=== PATIENT | female | born 1960 | race Caucasian/White ===

== ENCOUNTER 2018-06-22 17:43 | Emergency (ER) | payer BC, OTHER ==
[~2018-06-22] VITALS: Ht 162.6 cm; Wt 68.0 kg
[~2018-06-22 17:43] MED LIST: LEVSOD75 PO; NITR100CA PO; OLME20 PO; OXYACE5T PO; PROM25 PO
[2018-06-22 18:52] LABS: BASOPHILS ABSOLUTE AUTO 0.04 K/mm3 (0.00-0.23); BASOPHILS PERCENT AUTO 0 % (0-2); EOSINOPHILS PERCENT AUTO 2 % (0-6); Hematocrit 44.9 % (33.0-51.0); IMMATURE GRAN ABSOLUTE AUTO 0.04 K/mm3 (0.00-0.10); IMMATURE GRAN PERCENT AUTO 0 % (0-1); LYMPHOCYTES ABSOLUTE AUTO 2.38 K/mm3 (0.84-5.20); LYMPHOCYTES PERCENT AUTO 21 % (21-46); MONOCYTES ABSOLUTE AUTO 0.48 K/mm3 (0.16-1.47); MONOCYTES PERCENT AUTO 4 % (4-13); Mean Corpuscular HGB 30.5 pg (26.0-34.0); Mean Corpuscular HGB Conc 33.4 g/dL (31.5-36.5); Mean Corpuscular Volume 91 fL (80-100); NEUTROPHILS ABSOLUTE AUTO 8.11 K/mm3 (1.96-9.15); NEUTROPHILS PERCENT AUTO 72 % (41-73); Platelet Count 234 K/mm3 (150-400); RDW Coefficient Variation 13.9 % (11.7-14.2); RDW Standard Deviation 47.3 fL (35.1-46.3); Red Blood Cell Count 4.91 M/mm3 (3.80-5.20); White Blood Cell Count 11.25 K/mm3 (4.00-11.30)
[2018-06-22 19:11] LABS: Alanine Aminotransfer (ALT/SGP 59 U/L (12-78); Alk Phos 66 U/L (50-136); Anion Gap 8 mmol/L (6-16); Aspartate Aminotrans (AST/SGOT 69 U/L (12-37); Bilirubin, Total 0.3 mg/dL (0.1-1.0); Blood Urea Nitrogen 16 mg/dL (8-24); Bun/Creatinine Ratio 16.4 (12.0-20.0); CO2, Blood 28 mmol/L (21-32); Calcium, Blood 9.5 mg/dL (8.5-10.1); Chloride, Blood 104 mmol/L (98-108); Creatinine, Blood 0.98 mg/dL (0.40-1.00); Globulin, Blood 4.1 g/dL (2.2-4.0); Glomerular Filtration Rate >60 (60-); Glucose, Blood 135 mg/dL (70-99); Potassium, Blood 2.8 mmol/L (3.5-5.5); Sodium, Blood 140 mmol/L (136-145); Total Protein, Blood 8.1 g/dL (6.4-8.2); Troponin I <0.015 ng/mL (0.000-0.040)
[2018-06-22] MEDS ORDERED: VENL75ER PO (20:30)
[2018-06-22] MEDS ORDERED: AMLO5 PO (20:30)
[2018-06-22] MEDS ORDERED: ADAL40PEN (20:30)
[2018-06-22] MEDS ORDERED: LEVSOD125 PO (20:30)
[2018-06-22] MEDS ORDERED: CONEST1.25 PO (20:30)
[2018-06-22] MEDS ORDERED: Pantoprazole So40 MG PO (20:31)
[2018-06-22] MEDS ORDERED: INSULANPEN (20:31)
[2018-06-22] MEDS ORDERED: METF500C PO (20:31)
[2018-06-22] MEDS ORDERED: FENO145 PO (20:31)
[2018-06-22] MEDS ORDERED: HYDCHL25 PO (20:31)
[2018-06-22] MEDS ORDERED: K-Dur20 MEQ PO (20:48)
== END 2018-06-22 21:29 | disposition home or self-care (01) ==
LOC: ER 17:43
PROVIDERS: Physician Assistant
DX: E87.6 Hypokalemia (principal); R25.3 Fasciculation; E11.9 Type 2 diabetes mellitus without complications; E78.5 Hyperlipidemia, unspecified; I10 Essential (primary) hypertension; E03.9 Hypothyroidism, unspecified
CPT/HCPCS: 36415; 71046; 80053; 82947; 84484; 85025; 93005; 93010; 99284-25

== ENCOUNTER → 2021-10-11 | Outpatient (CLI) | payer BC, OTHER ==
[~2021-10-11] MED LIST changes: +ADAL40PEN; +AMLO5 PO; +CONEST1.25 PO; +FENO145 PO; +HYDCHL25 PO; +INSULANPEN; +K-Dur20 MEQ PO; +LEVSOD125 PO; +METF500C PO; +Pantoprazole So40 MG PO; +VENL75ER PO
[2021-10-13 20:49] LABS: Adenovirus F 40/41 Not Detected (NOT DETECT); Astrovirus Not Detected (NOT DETECT); Campylobacter Sp Not Detected (NOT DETECT); Cryptosporidium Not Detected (NOT DETECT); Cyclospora Cayetanensis Not Detected (NOT DETECT); E. Coli O157 Not Detected (NOT DETECT); Entamoeba Histolytica Not Detected (NOT DETECT); Enteroaggregative E. coli-EAEC Not Detected (NOT DETECT); Enteropathogenic E. coli-EPEC Not Detected (NOT DETECT); Enterotoxigenic E. coli-ETEC Not Detected (NOT DETECT); Giardia Lamblia Not Detected (NOT DETECT); Norovirus GI/GII Not Detected (NOT DETECT); Plesiomonas Shigelloides Not Detected (NOT DETECT); Rotavirus A Not Detected (NOT DETECT); Salmonella Sp Not Detected (NOT DETECT); Shiga Toxin-prod E. coli-STEC Not Detected (NOT DETECT); Shigella/Enteroin E. coli-EIEC Not Detected (NOT DETECT); Vibrio Cholerae Not Detected (NOT DETECT); Vibrio Sp Not Detected (NOT DETECT); Yersinia Enterocolitica Not Detected (NOT DETECT)
[2021-10-13 20:50] LABS: Sapovirus Not Detected (NOT DETECT)
== END | disposition home or self-care (01) ==
LOC: LAB SHORT 17:45 → LAB 17:45
PROVIDERS: Nurse Practitioner Family
DX: A06.1 Chronic intestinal amebiasis (principal)
CPT/HCPCS: 87507

== ENCOUNTER 2022-08-06 05:39 | Inpatient (IN) | payer BC, OTHER ==
[~2022-08-06] VITALS: Ht 162.6 cm; Wt 55.7 kg
[~2022-08-06 05:39] MED LIST changes: +ALPR.5 PO; +AMLODIPINE BESYL5 MG PO; +AMOCLA875 PO; +ATEN50 PO; +BACLOFEN5 M1 PO; +CYMBALTA30 M2 PO; +DULO60 PO; +Flonase 0.05% N16 GM; +LEUC5 PO; +LEVOTHYROXINE PO; +LIDO700A20 TOP; +LOSA25 PO; +METFORMIN HCL500 M3 PO; +Norco 5-325 Ta1 EACH PO; +PANT40 PO; -Pantoprazole So40 MG PO; +Potassium Chlo20 ME1 PO; +Robaxin750 MG PO; +SITA100T2 PO; +SPIR25 PO
[2022-08-06 06:13] LABS: BASOPHILS ABSOLUTE AUTO 0.08 K/mm3 (0.00-0.23); BASOPHILS PERCENT AUTO 0 % (0-2); EOSINOPHILS ABSOLUTE AUTO 0.13 K/mm3 (0.00-0.68); EOSINOPHILS PERCENT AUTO 1 % (0-6); Hematocrit 38.6 % (33.0-51.0); Hemoglobin 14.1 g/dL (11.5-16.0); IMMATURE GRAN ABSOLUTE AUTO 0.21 K/mm3 (0.00-0.10); IMMATURE GRAN PERCENT AUTO 1 % (0-1); LYMPHOCYTES ABSOLUTE AUTO 2.21 K/mm3 (0.84-5.20); LYMPHOCYTES PERCENT AUTO 12 % (21-46); MONOCYTES PERCENT AUTO 6 % (4-13); Mean Corpuscular HGB Conc 36.5 g/dL (31.5-36.5); Mean Corpuscular Volume 82 fL (80-100); Mean Platelet Volume 12.7 fL (9.1-12.4); NEUTROPHILS ABSOLUTE AUTO 15.12 K/mm3 (1.96-9.15); NEUTROPHILS PERCENT AUTO 80 % (41-73); Platelet Count 259 K/mm3 (150-400); RDW Standard Deviation 36.3 fL (35.1-46.3); White Blood Cell Count 18.85 K/mm3 (4.00-11.30)
[2022-08-06 07:01] LABS: Albumin, Blood 2.9 g/dL (3.4-5.0); Albumin/Globulin Ratio 0.6 (0.8-1.8); Bilirubin, Total 0.5 mg/dL (0.1-1.0); Calcium, Blood 9.2 mg/dL (8.5-10.1); Creatinine, Blood 1.67 mg/dL (0.40-1.00); Globulin, Blood 4.5 g/dL (2.2-4.0); Potassium, Blood 4.5 mmol/L (3.5-5.5); Total Protein, Blood 7.4 g/dL (6.4-8.2)
[2022-08-06] MEDS ORDERED: ALPR.5 PO (07:12)
[2022-08-06 07:21] LABS: Source, Urine Straight Cath
[2022-08-06 07:32] LABS: Appearance, Urine Hazy (Clear); Bilirubin, Urine Neg (Neg); Blood, Urine 2+ (Neg); Color, Urine Yellow (P-Yellow); Glucose Qualitative, Urine 4+ (Neg); Ketones, Urine Neg (Neg); Leukocyte Esterase, Urine 3+ (Neg); Nitrite, Urine Neg (Neg); Protein, Urine 1+ (Neg); Urobilinogen, Urine NORM (Normal)
[2022-08-06 07:44] LABS: Bacteria Many /hpf; Squamous Epithelial Cells Many /hpf (Few)
[2022-08-06] MEDS ORDERED: Triamcinolone A15 G4 TOP (11:43)
[2022-08-06] MEDS ORDERED: GABA300 PO (11:48)
--- NOTE | 2022-08-06 13:46 | NUR ---
RN NOTE MS ELLIS WAS ADMITTED FROM THE ER AT 11.28AM. PT ORIENTATED TO SELF, PLACE, DATE AND SOME OF SITUATION. SHE SOMETIMES STATES ANSWERS THAT DON'T SEEM APPRIOPRIATE FOR THE QUESTION, SEEMS FORGETFUL. BLOOD GLUCOSE 394 ON ARRIVAL. PT ON NON DIABETIC CLEAR LIQUID DIET. DR MILLER INFORMED. GLARGINE INSULIN GIVEN ORDERED. S/S TO START AT 1630HRS. C/O 10/10 PAIN THAT SHE SAID SHE HAS HAD FOR 3 WEEKS DUE TO PINCHED NERVE. HER SAID SHE HAS BEEN IN SEVERE NERVE PAIN, BUT THAT SHE DOESN'T SEEM TO BE IN MUCH PAIN NOW. SHE LOOKS SETTLED AND IS RESTING WITH HER EYES CLOSED, HAS NOT REQUESTED PAIN MEDICATIOINS. SHE DESCRIBED SOME NAUSEA EARLIER, BUT ALSO REPEATIDLY REQUESTS A MEAL TRAY OF SOLID FOOD. REMINDED OF DIET RESTRICTIONS. SHE SAID SHE HAS LOST AROUND 40LBS IN THE PAST 4 MONTHS. SHE SAID SHE USES GUMMYS AT HOME FOR ANXIETY. BED LOW, BED ALARM ON FOR PT SAFETY, CALL LIGHT IN REACH.
[2022-08-06 16:32] LABS: Bun/Creatinine Ratio 25.2 (12.0-20.0); Calcium, Blood 9.4 mg/dL (8.5-10.1); Creatinine, Blood 1.35 mg/dL (0.40-1.00); Magnesium, Blood 2.4 mg/dL (1.6-2.4); Phosphorus, Blood 2.9 mg/dL (2.5-4.9); Potassium, Blood 4.2 mmol/L (3.5-5.5)
--- NOTE | 2022-08-06 17:05 | NUR ---
SHIFT SUMMARY MS ELLIS IS ABLE TO ANSWER ORIENTATION QUESTIONS APPROPRIATELY, BUT IS CONFUSED IN SOME OF THE THINGS THAT SHE SAYS. SHE APPEARS TO BE HAVING HALLUCINATIONS, SAID SHE CAN SEE COWS OUTSIDE THE WINDOWS AND A DOG AND HEARS HER BROTHER'S MOTORBIKE AND VOICE. SHE SAID HER NERVE PAIN IN HER BUTTOCK IS "A LITTLE BIT IRRITATING" AND THAT SHE DOES NOT NEED PAIN MEDICATIONS AT THIS TIME. IVF INFUSING. EXTRA DOSE OF LONG ACTING INSULIN GIVEN. LAST BLOOD GLUCOSE 357. STEADY GAIT TO BATHROOM, ASSISTED AND GAIT BELT ON. SHE HAS USED THE CALL LIGHT AND WAITED FOR HELP BEFORE GETTING UP OUT OF BED. BED ALARM ON.
--- NOTE | 2022-08-06 17:36 | NUR ---
RN NOTE DR COTA UPDATED ON PT STATUS. INCREASING CONFUSION AND HALLUCINATIONS. SEROQUIL 25-50MG QHS PRN ORDERED AND ENTERED INTO [employer]. BLOOD GLUCOSE 353,10 UNITS S/S INSULIN GIVEN.
[2022-08-07 05:00] LABS: Source, Urine Foley catheter
[2022-08-07 05:13] LABS: Appearance, Urine Clear (Clear); Bilirubin, Urine Neg (Neg); Blood, Urine Neg (Neg); Glucose Qualitative, Urine 1+ (Neg); Ketones, Urine Neg (Neg); Leukocyte Esterase, Urine Neg (Neg); Nitrite, Urine Neg (Neg); Protein, Urine Neg (Neg); Specific Gravity, Urine 1.015 (1.003-1.022); Urobilinogen, Urine NORM (Normal)
[2022-08-07 05:27] LABS: BASOPHILS ABSOLUTE AUTO 0.09 K/mm3 (0.00-0.23); BASOPHILS PERCENT AUTO 0 % (0-2); EOSINOPHILS ABSOLUTE AUTO 0.23 K/mm3 (0.00-0.68); EOSINOPHILS PERCENT AUTO 1 % (0-6); Hematocrit 41.3 % (33.0-51.0); Hemoglobin 13.9 g/dL (11.5-16.0); IMMATURE GRAN ABSOLUTE AUTO 0.22 K/mm3 (0.00-0.10); IMMATURE GRAN PERCENT AUTO 1 % (0-1); LYMPHOCYTES ABSOLUTE AUTO 4.02 K/mm3 (0.84-5.20); LYMPHOCYTES PERCENT AUTO 20 % (21-46); MONOCYTES ABSOLUTE AUTO 1.51 K/mm3 (0.16-1.47); MONOCYTES PERCENT AUTO 7 % (4-13); Mean Corpuscular HGB 29.4 pg (26.0-34.0); Mean Corpuscular HGB Conc 33.7 g/dL (31.5-36.5); Mean Platelet Volume 12.3 fL (9.1-12.4); NEUTROPHILS ABSOLUTE AUTO 14.21 K/mm3 (1.96-9.15); NEUTROPHILS PERCENT AUTO 70 % (41-73); Platelet Count 317 K/mm3 (150-400); RDW Coefficient Variation 12.4 % (11.7-14.2); RDW Standard Deviation 39.8 fL (35.1-46.3); Red Blood Cell Count 4.73 M/mm3 (3.80-5.20); White Blood Cell Count 20.28 K/mm3 (4.00-11.30)
[2022-08-07 05:28] LABS: Color, Urine Pale Yellow (P-Yellow)
[2022-08-07 05:36] LABS: U Amphetamine Screen Not Detected; U Barbituate Screen Not Detected; U Benzodiazapine Screen Not Detected; U Buprenorphine Screen Not Detected; U Cannabinoids Screen DETECTED; U Cocaine Screen Not Detected; U Methadone Screen Not Detected; U Methamphetamine Screen Not Detected; U Opiates Screen Not Detected; U Oxycodone Screen Not Detected; U Phencyclidine Screen Not Detected; U Propoxyphene Screen Not Detected
[2022-08-07 05:53] LABS: Mean Corpuscular Volume 87 fL (80-100)
[2022-08-07 06:04] LABS: Albumin, Blood 3.4 g/dL (3.4-5.0); Albumin/Globulin Ratio 0.7 (0.8-1.8); Bilirubin, Total 0.7 mg/dL (0.1-1.0); Bun/Creatinine Ratio 20.8 (12.0-20.0); Calcium, Blood 10.5 mg/dL (8.5-10.1); Creatinine, Blood 1.44 mg/dL (0.40-1.00); Globulin, Blood 4.9 g/dL (2.2-4.0); Potassium, Blood 5.4 mmol/L (3.5-5.5); Total Protein, Blood 8.3 g/dL (6.4-8.2)
--- NOTE | 2022-08-07 06:14 | NUR ---
SHIFT SUMMERY, PT VERY CONFUSED AND AJITATED TONIGHT. PT HAD BECOME INCREAINGLY MORE CONFUSED AND AJITATED THE NIGHT PROGRESSED. PT WAS HEARING THINGS AND HAVING HALUCINATIONS, PULLING OUT IVS, TRYING TO GET OUT OF BED TRYING TO HIT AND KICK. PT GIVEN 25 MG OF SERQUAL AT 2033, THEN ANOTHER 25 MG AT 2142. PT JUST BECOMMING MOR AJITATED AND CONFUSED. CALLED AND ORDER FOR 5 MG IM HALDOL AT 2326. PT STILL VERY AJITATED AND HALUSINATIONS INCREASED. ZYPREXA 10 MG IM GIVEN AT 47. CALL TO MD ABOUT MEDICATION ATIVAN 1 MG IV ORDERD AND OFFICE MESSENGER HELPER REPORTED PT BITTING HER OWN ARM. PT CONTINUALY TRYING TO GET OUT OF BED BUT NOT STEADY. OFFICE MESSENGER HELPER AND THIS NURSE TRYED TO GET PT TO BEDSIDE COMODE TO SEE IF PT NEEDED TO VOID, PT NOT ABLE TO STAND AND FIGHTING TO GET UP BUT HITTING AND NOT ABLE TO STAND. 0427 RESTRAINTS PLACED ON PT PT BEINGCONSTANTLY OBSERVED FROM DOOR WAY. REQUESTED BLADDER SCAN 740ML RESULTS. GARCIA CATH WAS PLACED WITH 6 PEOPLE HOLDING PT TO PLACE CATH. PTS IV NOT WORKING AND NEW IV PLACED TO RIGHT ARM AND LABS DRWN WHILE BEING HELD DOWN BY 5 STAFF. PT AT THIS TIME GIVEN 1 MG ATIVAN. PT MOVING CONSTANTLY TRASHING ABOUT IN BED EVEN WITH 4 POINT RESTRAINTS ON AND STILL TRYING TO GET OUT OF BED. RESULTS.
--- NOTE | 2022-08-07 11:01 | NUR ---
PT ARRIVAL... PT ARRIVED TO THE ICU AT 1040. SHE OPENS HER EYES BUT DOES NOT TRACK MOVMENT, SHE DOES NOT FOLLOW COMMANDS, SHE IS EXTREMELY RESTLESS WITH JERKING MOVEMENTS OF HER ARMS AND LEGS. SHE IS IN SINUS TACH AT 115 WITH BP OF 153/104 AT THE TIME OF ARRIVAL. O2 SATS ARE >95% ON RA. RR IN THE HIGH 20'S. THE PT'S GARCIA IS PATENT AND DRAINING CLEAR YELLOW URINE TO GRAVITY. PRECEDEX GTT STARTED AT 0.2MCG/KG AT THIS TIME. WILL CONTINUE TO MONITOR.
--- NOTE | 2022-08-07 11:11 | NUR ---
PT TRANSFERED TO ICU, THIS AM THE PT WAS IN RESTRAINTS, HALUCINATING. THRASHING UNCONTROLABLY. UNABLE TO REDIRECT, WAS NOT ABLE TO ANSWER QUESTIONS. DR. COTA WAS CALLED AN ORDERED FOR ZYPREXA 10 MG WAS MADE AND GIVEN. DR. COTA EXAMINED THE PT AT THE BEDSIDE AND IT WAS DECIDED THAT THE PT WOULD NEED ICU. A CALLL WAS MADE TO ANNE MARIE BACK, REPORT WAS GIVEN AND THE PT WAS TRANSFERED VIA BED TO ICU 15.
--- NOTE | 2022-08-07 18:36 | NUR ---
SHIFT SUMMARY... NO ACUTE NEGATIVE CHANGES SINCE PREVIOUS ASSESSMENT, THE PT IS CURRENTLY AT 1.4MCG/KG ON THE PRECEDEX GTT. SHE WAS TREATED WITH 2MG IV ATIVAN WHICH ALLOWED HER TO SLEEP FOR APROX 6 HRS. ONCE SHE WOKE UP SHE WAS STILL VERY AGITATED AND RESTLESS, PULLING ON THE RESTRAINTS/BLANKETS AND CORDS. SHE STILL COULD NOT FOLLOW COMMANDS OR TRACK MOVMENT. HER VS CONTINUE TO BE STABLE, O2 SATS CONTINUE TO BE >95% ON RA. THE PT'S GARCIA IS PATENT AND DRAINED 250MLS OF DARK YELLOW URINE TO GRAVITY. THE PT'S WAS AT THE BEDSIDE FOR SEVERAL HOURS THIS SHIFT, HE WAS UPDATED ON THE PT'S CONDITION AND PLAN OF CARE. ORAL CARE DONE Q4 HRS THIS SHIFT. WILL CONTINUE TO MONITOR UNTIL REPORT IS GIVEN TO ONCOMING RN.
[2022-08-08 03:27] LABS: BASOPHILS ABSOLUTE AUTO 0.07 K/mm3 (0.00-0.23); BASOPHILS PERCENT AUTO 1 % (0-2); EOSINOPHILS ABSOLUTE AUTO 0.31 K/mm3 (0.00-0.68); EOSINOPHILS PERCENT AUTO 3 % (0-6); Hemoglobin 13.1 g/dL (11.5-16.0); IMMATURE GRAN ABSOLUTE AUTO 0.12 K/mm3 (0.00-0.10); IMMATURE GRAN PERCENT AUTO 1 % (0-1); LYMPHOCYTES ABSOLUTE AUTO 2.86 K/mm3 (0.84-5.20); LYMPHOCYTES PERCENT AUTO 27 % (21-46); MONOCYTES ABSOLUTE AUTO 0.96 K/mm3 (0.16-1.47); MONOCYTES PERCENT AUTO 9 % (4-13); Mean Corpuscular HGB Conc 33.6 g/dL (31.5-36.5); Mean Corpuscular Volume 87 fL (80-100); Mean Platelet Volume 11.3 fL (9.1-12.4); NEUTROPHILS ABSOLUTE AUTO 6.47 K/mm3 (1.96-9.15); NEUTROPHILS PERCENT AUTO 60 % (41-73); Platelet Count 235 K/mm3 (150-400); RDW Coefficient Variation 12.8 % (11.7-14.2); RDW Standard Deviation 40.6 fL (35.1-46.3); Red Blood Cell Count 4.51 M/mm3 (3.80-5.20); White Blood Cell Count 10.79 K/mm3 (4.00-11.30)
[2022-08-08 03:49] LABS: Albumin, Blood 2.7 g/dL (3.4-5.0); Albumin/Globulin Ratio 0.7 (0.8-1.8); Bilirubin, Total 0.3 mg/dL (0.1-1.0); Bun/Creatinine Ratio 19.2 (12.0-20.0); Calcium, Blood 10.2 mg/dL (8.5-10.1); Creatinine, Blood 1.2 mg/dL (0.40-1.00); Globulin, Blood 4.1 g/dL (2.2-4.0); Potassium, Blood 4.9 mmol/L (3.5-5.5); Total Protein, Blood 6.8 g/dL (6.4-8.2)
--- NOTE | 2022-08-08 06:10 | NUR ---
PATIENT EXTREMELY CONFUSED AND AGITATED. ORIENTED TO SELF ONLY, UNABLE TO REORIENT. DOES NOT FOLLOW COMMANDS BUT MOVES ALL EXTREMITIES. THRASHES AROUND IN BED FIGHTING RESTRAINTS AND YELLING OUT. PRN ZYPREXA GIVEN X2 AND ATIVAN GIVEN X4. PATIENT BRIEFLY OFF PRECEDEX DUE TO BRADYCARDIA, BUT NOW IT IS RESTARTED AND PATIENT IS SR/ST. BP STABLE. ROOM AIR. NOT SAFE TO TAKE ANYTHING PO AT THIS TIME. GARCIA IN PLACE AND DRAINING.
--- NOTE | 2022-08-08 09:51 | NUR ---
PROVIDER IN TO SEE PT. WILL OBTAIN NEW URINE CX VIA GARCIA CATH PREVIOUS CX WAS NOTED TO HAVE POSSIBLE CONTAMINATION. PER PCP, WILL ALSO ALLOW ONE MORE DAY FOR PATIENT TO OBTAIN IMPROVED MENTAL STATUS BEFORE POSSIBLE CHANGE FROM PO LEVOTHYROXINE TO IV LEVOTHYROXINE.
[2022-08-08 11:40] LABS: Source, Urine Foley catheter
[2022-08-08 11:51] LABS: Bilirubin, Urine Neg (Neg); Blood, Urine 4+ (Neg); Color, Urine Yellow (P-Yellow); Glucose Qualitative, Urine Neg (Neg); Ketones, Urine 1+ (Neg); Leukocyte Esterase, Urine 1+ (Neg); Nitrite, Urine Neg (Neg); Protein, Urine 2+ (Neg); Urobilinogen, Urine NORM (Normal)
[2022-08-08 12:39] LABS: Appearance, Urine Hazy (Clear)
[2022-08-08 12:41] LABS: Squamous Epithelial Cells Not Seen /hpf (Few)
[2022-08-08 12:42] LABS: Bacteria Few /hpf
--- NOTE | 2022-08-08 15:18 | NUR ---
Patient is lying in bed and restless at times. She Hai is bedside and is tearful at times. He talks about the complications that led to her hospitalization, his feelings of helplessness to fix his and about her long list of medical problems. 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 I normalize his feelings, reinforce helpful attitudes and provide therapeutic listening, theological insights and prayer. Hai responded well to all interventions and showed signs of increased hope. Spiritual care will remain available.
--- NOTE | 2022-08-08 17:03 | NUR ---
SHIFT SUMMARY.... NO ACUTE NEGATIVE CHANGES NOTED THIS SHIFT. THE PT CONTINUES ON THE PRECEDEX DRIP DOSE RANGE 0.5-1.4MCG/KG/HR WITH 2MG IV ATIVAN PRN TO KEEP HER CALM. THE PT'S HR HAS BEEN IN THE LOW 60'S TO MID 50'S WHILE SLEEPING ON THE PRECEDEX DRIP BUT IN THE 80'S-90'S WHILE AWAKE AND RESTLESS. THE PT'S BP HAS ALSO BEEN SOFT WITH SBPs IN THE 90'S WHILE ASLEEP BUT WHEN SHE IS AWAKE SHE BECOMES HYPERTENSIVE WITH SBPs IN THE 150'S. SHE CONTINUES TO BE CONFUSED AND DISORIENTED BUT THIS IS SLIGHTLY IMPROVED FROM YESTERDAY. THE PT'S HAS BEEN AT THE BEDSIDE FOR MOST OF THIS SHIFT, DYAN KANG (TEST RACK OPERATOR) MEET WITH THE PT'S THIS AFTERNOON IN THE ROOM. SHE CONTINUES TO BE NPO D/T ASPIRATION PRECAUTIONS. SHE HAS NOT HAD A BM SINCE ADMIT. HER GARCIA IS PATENT AND DRAINING DARK YELLOW URINE TO GRAVITY, A NEW UA W/CULTURE WAS SENT PER PROVIDER REQUEST THIS AM. WILL CONTINUE TO MONITOR UNTIL REPORT IS GIVEN TO ONCOMING RN.
--- NOTE | 2022-08-08 17:38 | NUR ---
SHIFT SUMMARY NO ACUTE NEGATIVE EVENTS OCCURED DURING THIS SHIFT. PT'S WAS PRESENT AT BEDSIDE MOST OF THE AM AND WAS VISIT BY SPIRITUAL CARE. PT REMAINS CONFUSED WITH MUMBLED SPEECH AND CONTINUES TO THRASH IN BED. PT REMAINS ON PRECEDEX, WHICH WAS TITRATED BETWEEN 0.5-1.4 MCG/KG/HR THROUGHOUT THE SHIFT D/T HR DECREASING TO MID 50'S. WHEN PT IS AWAKE HR IS IN 80-90'S. BP WAS LABILE; SBP OF 160'S WHILE AWAKE, AND 90'S WHILE ASLEEP. PT REMAINS NPO D/T AMS AND POTENTIAL ASPIRATION RISK. IV'S IN RFA AND LFA WERE DISCONTINUED DURING THIS SHIFT D/T INFILTRATION, AND A NEW IV WAS PLACED IN R WRIST AND LFA, FLUSHING WELL. NO BM SINCE ADMISSION. NEW UA WITH CX WAS ORDERED PER PROVIDER. GARCIA IS STILL IN PLACE AND PATENT. PLANS TO RETURN IN THE AM. WILL CONTINUE TO MONITOR UNTIL REPORT IS GIVEN TO ONCOMING RN.
--- NOTE | 2022-08-08 21:19 | NUR ---
ASSUMPTION OF CARE/ASSESSMENT: ASSUMED CARE OF PT AT 1900. PT IS IN BED AND ALERT TO VERBAL STIMULI. AT THIS TIME PT REMAINS CONFUSED AND ONLY ABLE TO STATE . PT MUMBLES INCOHERENTLY AND ATTENTION IS NOT FOCUSED AND PT IS UNABLE TO FOLLOW COMMANDS AT THIS TIME. PT CURRENTLY IN BSWR DUE TO PULLING AT LINES/CORDS; PRECEDEX GTT @ 0.9 MCG/KG/HR. PT CURRENTLY ON RA WITH SPO2 96<, RR 20-26 BUT JUMP TO MAX 36 WHEN PT AGGITATED/ANXIOUS. SINUS RYTHYM TO SINUS TACH ON MONITOR; CURRENTLY HR 70-80 WITH SBP 140'S. PT NPO AT THIS TIME R/T ASPIRATION RISK; ABD SOFT, NON-TENDER AND HYPOACTIVE BOWEL SOUNDS IN ALL QUADRANTS. PT SIMON AND SHIFTING HIPS INDEPENDENTLY AT THIS TIME. PPP X 4, SKIN INTACT. CALL LIGHT IN REACH, BED LOWERED, WILL CONTINUE TO MONITOR.
[2022-08-09 03:37] LABS: BASOPHILS ABSOLUTE AUTO 0.06 K/mm3 (0.00-0.23); BASOPHILS PERCENT AUTO 1 % (0-2); EOSINOPHILS ABSOLUTE AUTO 0.31 K/mm3 (0.00-0.68); EOSINOPHILS PERCENT AUTO 3 % (0-6); Hematocrit 38.9 % (33.0-51.0); Hemoglobin 13.3 g/dL (11.5-16.0); IMMATURE GRAN ABSOLUTE AUTO 0.12 K/mm3 (0.00-0.10); IMMATURE GRAN PERCENT AUTO 1 % (0-1); LYMPHOCYTES ABSOLUTE AUTO 2.24 K/mm3 (0.84-5.20); LYMPHOCYTES PERCENT AUTO 23 % (21-46); MONOCYTES ABSOLUTE AUTO 0.76 K/mm3 (0.16-1.47); MONOCYTES PERCENT AUTO 8 % (4-13); Mean Corpuscular HGB 29.5 pg (26.0-34.0); Mean Corpuscular HGB Conc 34.2 g/dL (31.5-36.5); Mean Corpuscular Volume 86 fL (80-100); Mean Platelet Volume 11.1 fL (9.1-12.4); NEUTROPHILS ABSOLUTE AUTO 6.48 K/mm3 (1.96-9.15); NEUTROPHILS PERCENT AUTO 65 % (41-73); Platelet Count 228 K/mm3 (150-400); RDW Coefficient Variation 12.9 % (11.7-14.2); RDW Standard Deviation 40.3 fL (35.1-46.3); Red Blood Cell Count 4.51 M/mm3 (3.80-5.20); White Blood Cell Count 9.97 K/mm3 (4.00-11.30)
--- NOTE | 2022-08-09 06:29 | NUR ---
SHIFT SUMMARY: NO ACUTE CHANGES OVER NIGHT. VSS STABLE THROUHGOUT THE NIGHT. PRECEDEX GTT @ 0.9 MCG/KG/HR; PT RECEIVED ONE DOSE OF PRN ATIVAN 2 MG AND A DOSE OF ZYPREXA FOR ANXIETY. PT HAVING HALLUCINATIONS AND APPEARS TO BE HAVING CONVERSATIONS WITH PEOPLE SHE BELIEVES TO BE IN THE ROOM. PT REMAINS CONFUSED AND FOLLOWING COMMANDS INCONSISTENTLY. PT IN BED SLEEPING AT THIS TIME. D5 1/2 NS GTT @ 100 MLS/HR. GOOD URINE OUTPUT THIS MORNING; 1300 ML OUTOUT. WILL CONTINUE UNTIL ONCOMING RN ARRIVES.
[2022-08-09 06:47] LABS: Albumin, Blood 2.7 g/dL (3.4-5.0); Albumin/Globulin Ratio 0.6 (0.8-1.8); Bilirubin, Total 0.6 mg/dL (0.1-1.0); Bun/Creatinine Ratio 11.7 (12.0-20.0); Calcium, Blood 9.3 mg/dL (8.5-10.1); Creatinine, Blood 0.86 mg/dL (0.40-1.00); Globulin, Blood 4.3 g/dL (2.2-4.0); Potassium, Blood 3.7 mmol/L (3.5-5.5)
--- NOTE | 2022-08-09 09:40 | NUR ---
ASSUMED CARE / DR BABB: REPORT RECEIVED FROM BARB Stallworth RN. ASSUMED CARE OF THIS PT AT APPROX 0700. ON ASSESSMENT, THE PT IS RESTING INTERMITTENTLY. WHEN SHE AWAKENS SHE IS PULLING AT BILAT SOFT WRIST RESTRAINTS & ATTEMPTING TO GET OOB UNSAFELY. SHE IS DIFFICULT TO REDIRECT AT THAT TIME & IS UNABLE TO FOLLOW DIRECTIONS CONSISTENTLY WHEN CALM. SHE TELLS THIS RN THAT SHE IS 59 Y/O & IS UNABLE TO STATE THE YEAR OR HER BEFORE BEGINNING TO SPEAK NONSENSICAL SENTENCES/ MUMBLING. LS ARE DIM IN BASES, PT ON RA W/ O2 SATS > 95%. MONITOR SHOWS SR W/ HR 70-90s, BP STABLE. NPO R/T AMS, UNABLE TO SAFELY TAKE PO AT THIS TIME. GARCIA PATENT/ DRAINING YELLOW URINE. SKIN CONDITION OVERALL INTACT, PT REPOSITIONS SELF W/O DIFFICULTY FOR COMFORT. DR BABB AT BEDSIDE THIS AM TO EVAL PT. UPDATED HIM ON PT's CURRENT STATUS & THAT SHE CONTINUES TO REQUIRE PRECEDEX FOR AGITATION. NO CHANGES AT THIS TIME. WILL CONTINUE TO MONITOR & UPDATE NEEDED.
--- NOTE | 2022-08-09 11:13 | NUR ---
Patient is sleeping and spouse, Hai is bedside. I provide therapeutic listening, a calming presence and a prayer for patient's recovery and for clarity to return. Hai voices his gratitude and shows signs of greater peace.
--- NOTE | 2022-08-09 17:14 | NUR ---
SHIFT SUMMARY: NO ACUTE CHANGES SINCE PRIOR UPDATES. PT REMAINS OUT OF RESTRAINTS, BUT DOES REQUIRE SOME REMINDERS TO NOT PULL AT CORDS/ LINES & CONTINUOUSLY FIDGETS W/ LINENS WHEN CONFUSED. PRECEDEX CONTINUES INFUSING AT 0.9 MCG/KG/HR. LS ARE DIM IN BASES, PT ON RA W/ O2 SATS > 92%. MONITOR SHOWS SR W/ HR 70-90s, BP STABLE. HYPERTENSIVE READINGS WHEN PT MORE AGITATED, IMPROVES QUICKLY ONCE PT IS MORE RELAXED. NPO R/T AMS & INABILITY TO CONSISTENTLY FOLLOW DIRECTIONS. MOIST MOUTH SWABS PROVIDED PRN THIS SHIFT. GARCIA PATENT/ DRAINING DARK YELLOW URINE. SKIN CONDITION OVERALL INTACT, PT CONTINUES TO REPOSITION SELF IN BED AT LEAST Q2H. BOOSTED & ASSISTED BY STAFF PRN. WILL CONTINUE TO MONITOR & REPORT OFF TO ONCOMING RN.
[2022-08-10 03:46] LABS: BASOPHILS ABSOLUTE AUTO 0.03 K/mm3 (0.00-0.23); BASOPHILS PERCENT AUTO 0 % (0-2); EOSINOPHILS ABSOLUTE AUTO 0.27 K/mm3 (0.00-0.68); EOSINOPHILS PERCENT AUTO 4 % (0-6); Hematocrit 35.6 % (33.0-51.0); Hemoglobin 12.1 g/dL (11.5-16.0); IMMATURE GRAN ABSOLUTE AUTO 0.06 K/mm3 (0.00-0.10); IMMATURE GRAN PERCENT AUTO 1 % (0-1); LYMPHOCYTES ABSOLUTE AUTO 2.06 K/mm3 (0.84-5.20); LYMPHOCYTES PERCENT AUTO 29 % (21-46); MONOCYTES ABSOLUTE AUTO 0.59 K/mm3 (0.16-1.47); MONOCYTES PERCENT AUTO 8 % (4-13); Mean Corpuscular HGB 28.9 pg (26.0-34.0); Mean Corpuscular Volume 85 fL (80-100); Mean Platelet Volume 10.8 fL (9.1-12.4); NEUTROPHILS ABSOLUTE AUTO 4.11 K/mm3 (1.96-9.15); NEUTROPHILS PERCENT AUTO 58 % (41-73); Platelet Count 235 K/mm3 (150-400); RDW Standard Deviation 39.8 fL (35.1-46.3); Red Blood Cell Count 4.19 M/mm3 (3.80-5.20); White Blood Cell Count 7.12 K/mm3 (4.00-11.30)
[2022-08-10 04:01] LABS: Albumin, Blood 2.3 g/dL (3.4-5.0); Albumin/Globulin Ratio 0.6 (0.8-1.8); Bilirubin, Total 0.3 mg/dL (0.1-1.0); Bun/Creatinine Ratio 4.8 (12.0-20.0); Calcium, Blood 8.8 mg/dL (8.5-10.1); Creatinine, Blood 0.83 mg/dL (0.40-1.00); Globulin, Blood 3.9 g/dL (2.2-4.0); Potassium, Blood 3.4 mmol/L (3.5-5.5); Total Protein, Blood 6.2 g/dL (6.4-8.2)
--- NOTE | 2022-08-10 06:19 | NUR ---
SHIFT SUMMARY: NO ACUTE CHANGES OVERNIGHT. PT VSS THROUGHOUT THE SHIFT. PRECEDEX GTT @ 1.0 AND D5 1/2 NS GTT @ 100 MLS/HR. PT MENTATION IMPROVING AND IS ABLE TO STAY OUT OF RESTRAINS AND IS FOLLOWING COMMANDS. PT REMAINS CONFUSED BUT IMPROVING. PT SLEPT ON AND OFF THROUGHOUT THE NIGHT. THE MORNING PROGRESSES PT IS GETTING MORE EAGER TO GO HOME AND ATTEMPTS TO GET OUT OF BED BUT ONCE REDIRECTED PT IS COOPERATIVE. BED LOWERED, CALL LIGHT IN REACH, WILL CONTINUE TO MONITOR UNTIL ONCOMING RN ARRIVES.
--- NOTE | 2022-08-10 08:00 | NUR ---
PT AWAKE AND ALERT, BUT CONFUSED AT TIMES. PT AWARE OF SURROUNDINGS AND OFF ON THE DATE BY 2 DAYS-PT DOES KNOW THE YEAR. PT RESTLESS AND AGITATED. APPEARS IMPULSIVE. PT PULLING ON LINES AND TUBES AND ATTEMPTING TO GET OOB. THIS BEHAVIOR IS WITH PRECEDEX @ 0.7 MCG/KG/MIN. PRECEDEX DRIP OFF AND PT MEDICATED WITH ZYPREXA 5 MG IM X 1 -SEE EMAR. ECG SHOWS ST WITH RATE 120'S BP STABLE. LUNGS CLEAR AND NO NOTED SOB OR COUGH. SATS>90% ON RA. NO NOTED GI DISTRESS. PT TOLERATING SIPS OF H20 WITHOUT SIGNS OF ASPIRATION. AM CARE DONE, GARCIA/ELIAN CARE DONE, THEN PT ASSISTED OOB TO CHAIR WITH ONE PERSON ASSIST. TAB ALARM PLACED AND 1:1 SITTER REQUESTED FOR PT SAFETY. ANTICIPATE STATUS CHANGE LATER THIS AM. WILL REQUEST ADA DIET AND PT/OT. PT SPOUSE IN FOR VISIT-FULL UPDATE GIVEN.
--- NOTE | 2022-08-10 09:45 | NUR ---
DR. BABB CONTACTED AND GIVEN FULL UPDATE. PT MEDICAL FLOOR STATUS (TO [facility]). ADA DIET ORDERED. CBG CHANGED TO AC & HS. GARCIA CATH DISCONTINUED. PT ABLE TO VOID 100 CC ON BSC ONCE GARCIA REMOVED. PT VERBALIZED MILD DYSURIA. PT TRANSFERED FROM CHAIR TO BSC WITH 1 PERSON ASSIST. PT/OT TO WORK WITH PT. PT SPOUSE AT BEDSIDE. 1:1 SITTER CONTINUES FOR PT SAFETY.
--- NOTE | 2022-08-10 12:15 | NUR ---
PT APPEARS AGITATED. SHE IS VERBALIZING FRUSTRATION THAT SHE IS NOT ABLE TO GO HOME TODAY. PT ASKED "HAS MY BEEN IN TO SEE ME TODAY?" PT REMINDED THAT HER SPOUSE WAS HERE EARLIER TODAY AND THAT HE HAS GONE HOME TO PREPARE FOR ANTICIPATED DISCHARGE TOMORROW. PT STATES "OH, YEAH. I FORGOT I GUESS." PT STILL IMPULSIVE, BUT SHE IS RE-DIRECTABLE FOR THE MOST PART. TEMP 100.1 AND HR 120'S. BP ELEVATED WITH AGITATION. LUNGS REMAIN CLEAR AND SATS>90% ON RA. NO NOTED GI DISTRESS. PT HAS BEEN SIPPING ON DIET PEPSI PER HER REQUEST WITHOUT DIFFICUTLY. CBG 82-NO COVERAGE INDICATED. PT MED WITH ATIVAN 2 MG IVP X 1 FOR AGITATION. SHAMPOO, SPONGE BATH COMPLETED-TOLERATED WELL. PT POSITIONED TO COMFORT ON HER LEFT SIDE. COCCYX SLIGHTLY RED, BUT BLANCHABLE-MEPILEX PLACED PREVENTIVIVE MEASURE.
--- NOTE | 2022-08-10 15:21 | NUR ---
PT LESS AGITATED THIS AFTERNOON. SHE HAS REQUESTED TO GET OOB TO WALK SEVERAL TIMES. REPORT PHONED TO WONG PERES IN PREP TO TRANSFER PT TO ROOM 345. PLAN TO AMBULATE PT USING WALKER AND WILL FOLLOW WITH WHEELCHAIR TO SEE HOW FAR PT CAN AMBULATE.
--- NOTE | 2022-08-10 17:52 | NUR ---
SHIFT SUMMARY PT TRANSFERRED TO ROOM 345 THIS SHIFT. PT AXO TO SELF ONLY. PT MEDICATED FOR ANXIETY PER EMAR. PULSE AT TIME OF TRANSFER WAS 131. DR BABB NOTIFIED AND TELE INITIATED. AT 1708 PT BP WAS 168/76. THIS NURSE MEDICATED PER EMAR AT 1714. PT ON CAMERA FOR RISK FOR FALLS, BED ALARM ON ALSO. IV PATENT AND SALINE LOCKED. BED IN LOW POSITION, CALL LIGHT WITHIN REACH. PT UNABLE TO ANSWER QUESTIONS APPROPRIATELY.
--- NOTE | 2022-08-10 19:06 | NUR ---
CARROT TIER STUDENT
[2022-08-11 05:37] LABS: BASOPHILS ABSOLUTE AUTO 0.05 K/mm3 (0.00-0.23); BASOPHILS PERCENT AUTO 1 % (0-2); EOSINOPHILS ABSOLUTE AUTO 0.07 K/mm3 (0.00-0.68); EOSINOPHILS PERCENT AUTO 1 % (0-6); Hematocrit 36.1 % (33.0-51.0); Hemoglobin 12.4 g/dL (11.5-16.0); IMMATURE GRAN ABSOLUTE AUTO 0.06 K/mm3 (0.00-0.10); IMMATURE GRAN PERCENT AUTO 1 % (0-1); LYMPHOCYTES ABSOLUTE AUTO 2.15 K/mm3 (0.84-5.20); LYMPHOCYTES PERCENT AUTO 26 % (21-46); MONOCYTES PERCENT AUTO 10 % (4-13); Mean Corpuscular HGB 29.3 pg (26.0-34.0); Mean Corpuscular HGB Conc 34.3 g/dL (31.5-36.5); Mean Corpuscular Volume 85 fL (80-100); NEUTROPHILS PERCENT AUTO 63 % (41-73); Platelet Count 269 K/mm3 (150-400); RDW Coefficient Variation 13.1 % (11.7-14.2); Red Blood Cell Count 4.23 M/mm3 (3.80-5.20); White Blood Cell Count 8.43 K/mm3 (4.00-11.30)
--- NOTE | 2022-08-11 06:00 | NUR ---
END OF SHIFT NURSING REPORT - PM Patient is a 61 y/o female admitted for AMS r/t UTI, hyperglycemia, NELDA and suspected polypharmacy from her prescribed medication. She was transfered to ICU on started on Precedex and gallardo catheter. She was tranfered to medical yesterday. Oriented to self and place. Exhibits word salad and jumps from one topic to another. She is confused, restress and was placed on a earnestine restrains to prevent fall d/t multiple bed exits. Medicated with PRN Ativan X3 and Zyplexa x2. Sitter requested to bedside as pt was managing to sit up and move to one side of the bed - reach to earnestine vest ties and untie it from under the bed. Her gait is unsteady on ambulation and requires x1 assist. She voided >6 times through the shift, declines any pain or discomfort.
--- NOTE | 2022-08-11 12:04 | NUR ---
RN NOTE CALL FROM [employer], HR UP TO 150S WITH ACTIVITY. DR BABB NOTIFIED OF HR AND BP. ORDERED METOPROLOL SUCINATE 25MG PO QD, 1ST DOSE NOW. ORDER ENTERED IN [employer].
--- NOTE | 2022-08-11 15:19 | NUR ---
SHIFT SUMMARY MS ELLIS IS ORIENTATED TO HER SELF, [place] AND 2022. SHE WAS ABLE TO TELL ME HER [place] [employer], BUT HAS A LOT OF NON SENSICAL CONVERSATION AND DESCRIBES VISUAL AND AUDITORY HALLUCINATIONS. SHE IS IMPULSIVE IN GETTING UP OUT OF BED, SHE CAN BE REDIRECTED BUT BRIEFLY BEFORE NEEDING TO BE REDIRECTED AGAIN. SITTER AT BEDSIDE FOR PATIENT SAFETY. SHE HAS NOT SLEPT TODAY AFTER REPORT OF HER NOT SLEEPING LAST NIGHT, SHE IS VERY ACTIVE, FIDGETS, GETS UP AND MOVES A LOT. GIVEN ATIVAN 2MG IV FOR ANXIETY BUT SHE STILL HAS NOT RESTED. SHE IS VERY CONFUSED IN HER CONVERSATION. ON TELE, CALLS FROM [employer] ST 150S WHEN SHE IS UP MOVING. HR 120S A LOT. BP HIGH THIS AM, MEDICATED WITH HYDRALAZINE. METOPROLOL ORDERED AND DAILY DOSE STARTED TODAY. BLOOD SUGARS IN THE 200S, COVERED WITH S/S INSULIN. AMBULATING IN THE HALLS SEVERAL TIME WITH GAIT BELT AND WALKER. HER VISITED AND SPENT MOST OF THE MORNING WITH HER. BED LOW, CALL LIGHT IN REACH, BED ALARM ON.
[2022-08-11 16:19] LABS: Free Thyroxine 1.13 ng/dL (0.70-1.60)
[2022-08-11 16:22] LABS: Thyroid Stimulating Hormone 4.49 uIU/mL (0.360-4.800); Triiodothyronine, Free 1.66 pg/mL (2.18-3.98)
[2022-08-11 17:00] LABS: Albumin, Blood 2.8 g/dL (3.4-5.0); Albumin/Globulin Ratio 0.7 (0.8-1.8); Bilirubin, Total 0.5 mg/dL (0.1-1.0); Bun/Creatinine Ratio 5.2 (12.0-20.0); Calcium, Blood 9.5 mg/dL (8.5-10.1); Creatinine, Blood 0.97 mg/dL (0.40-1.00); Potassium, Blood 3.2 mmol/L (3.5-5.5); Total Protein, Blood 6.8 g/dL (6.4-8.2)
--- NOTE | 2022-08-11 20:19 | NUR ---
CALLED CALL PLACED TO DR GOMES TO EXPLAIN CONCERNS OF PT HAVING INCREASED CONFUSION/HALLUCINATIONS. INFORMED ABOUT HOW PREVIOUS SHIFTS REPORTS ORDERED MEDICATION FOR ANXIETY AND AGRESSION FAIL TO WORK. PT REMAINS TACHYCARDIC AND HAS NO PRN MEDICATIONS. AWAITNG NEW ORDERS AT THIS TIME. PLAN TO CALL WITH FURTHER CONCERNS
--- NOTE | 2022-08-12 04:04 | NUR ---
VSS. TELE READS SINUS TACH 103. PT HAS BEEN ABLE TO SLEEP SINCE 2244. T/O THE NIGHT THE PT HAS EXPERIENCE AUDITORY AND VISUAL HALLUCINATIONS OF HER FAMILY/PETS AND INFANTS. SHE HAS BEEN ABLE TO ANSWER ORIENTATION QUESTIONS APPROPRIATELY T/O THE SHIFT, BUT CONTINUES TO HAVE SPORATIC AND RANDOM CONVORSATIONS WTIH STAFF/HALLUCINATIONS. PT HAS BEEN MOSTLY REDIRECTABLE T/O THE NIGHT, ONLY ONE INSTANCE WHERE MULTIPLE STAFF MEMBERS WERE NEEDED TO DIRECT THE PATIENT BACK TO BED. PT HAS REMAINED IMPULSIVE AND LABILE. ATIVAN GIVEN ONCE, NO RESPONSE NOTED TO MEDICATION. PT AMBULATING WITH 1 STAFF, FWW AND GT BELT WHEN POSSIBLE. TOLLERATING PO INTAKE W/O N/V. TWO CONTINENT VOIDS NOTED, NO BM'S. PASSING FLATTUS. PLAN FOR PT TO HAVE A PSYCH CONSULT AND AM LABS. THE PATIENT IS CURRENTLY SLEEPING, IN NO DISTRESS, CALL LIGHT IN REACH. SITTING 1:1.
[2022-08-12 06:08] LABS: BASOPHILS ABSOLUTE AUTO 0.05 K/mm3 (0.00-0.23); BASOPHILS PERCENT AUTO 1 % (0-2); EOSINOPHILS ABSOLUTE AUTO 0.26 K/mm3 (0.00-0.68); EOSINOPHILS PERCENT AUTO 4 % (0-6); Hemoglobin 12.4 g/dL (11.5-16.0); IMMATURE GRAN ABSOLUTE AUTO 0.05 K/mm3 (0.00-0.10); IMMATURE GRAN PERCENT AUTO 1 % (0-1); LYMPHOCYTES ABSOLUTE AUTO 2.36 K/mm3 (0.84-5.20); LYMPHOCYTES PERCENT AUTO 31 % (21-46); MONOCYTES ABSOLUTE AUTO 0.77 K/mm3 (0.16-1.47); MONOCYTES PERCENT AUTO 10 % (4-13); Mean Corpuscular HGB 28.8 pg (26.0-34.0); Mean Corpuscular HGB Conc 33.5 g/dL (31.5-36.5); Mean Corpuscular Volume 86 fL (80-100); Mean Platelet Volume 10.9 fL (9.1-12.4); NEUTROPHILS ABSOLUTE AUTO 4.04 K/mm3 (1.96-9.15); NEUTROPHILS PERCENT AUTO 54 % (41-73); Platelet Count 265 K/mm3 (150-400); RDW Coefficient Variation 13.2 % (11.7-14.2); RDW Standard Deviation 41.4 fL (35.1-46.3); Red Blood Cell Count 4.31 M/mm3 (3.80-5.20); White Blood Cell Count 7.53 K/mm3 (4.00-11.30)
[2022-08-12 06:34] LABS: Albumin, Blood 2.7 g/dL (3.4-5.0); Albumin/Globulin Ratio 0.7 (0.8-1.8); Bilirubin, Total 0.4 mg/dL (0.1-1.0); Bun/Creatinine Ratio 7.2 (12.0-20.0); Calcium, Blood 9.8 mg/dL (8.5-10.1); Creatinine, Blood 0.84 mg/dL (0.40-1.00); Potassium, Blood 3.3 mmol/L (3.5-5.5); Total Protein, Blood 6.7 g/dL (6.4-8.2)
--- NOTE | 2022-08-12 17:44 | NUR ---
SHIFT SUMMARY: PT A&O X3. WAS ABLE TO STATE WHAT DAY OF THE WEEK IT WAS, HER BIRTHDAY, IDENTIFY HER , AND TELL ME THE YEAR. PT HAS BEEN VERY PLEASANT AND COOPERATIVE WITH CARE. DR. VILLAFANA ARRIVED THIS SHIFT TO PERFORM A COGNITIVE EVAL. WOULD LIKE TO CONTINUE CYMBALTA STARTING 0900 TOMORROW AND HAVE PHYSICAL THERAPY WORK WITH PT TO ESTABLISH IDEAS TO HELP WITH BACK PAIN W/O MULTIPLE MEDICATIONS. PT HAD ABDOMINAL US AND CHEST CT PERFORMED TODAY. PT HAD ONE EPISODE OF VISUAL HALLUCIONATION TODAY STATING THERE WAS CANDY ON HER ARM WHILE LOOKING AT IV. TELE IN PLACE RUNNING SINUS TACHY. SITTER NO LONGER NEEDED. PT ON CAMERA. AT BEDSIDE. NO BEHAVIOR MEDICATIONS NEEDED THIS SHIFT. CALL LIGHT IN REACH. BED IN LOWEST POSITION. WILL CONTINUE TO MONITOR.
--- NOTE | 2022-08-13 05:21 | NUR ---
PATIENT AGITATED AND IN PAIN THROUGHOUT SHIFT. CONSTANTLY IN ROOM TO GIVE PATIENT WATER BECAUSE HE STATES HE CANNOT MOVE HIS ARMS OR ANY PART OF HIS BODY DUE TO PAIN. CALLED DR GOMES AND GOT PRN PAIN MEDICATION Q4 VS Q6. ROOM AIR, NO TELE, CHRONIC GARCIA, ADA DIET, 20 RIGHT FOREARM SL, BEDREST, NO WEIGHT BEARING, SHOULDER XRAY COMPLETED 3/3 AM, PAIN CONTROL IS PATIENTS MAIN CONCERN. PATIENT ON PHONE WITH CIRO VILLAFANA AT BEGINNING OF SHIFT EXPRESSING THAT HE IS BEING DENIED FOOD AND WATER. I TRIED TO REDIRECT PATIENT AND HE BECAME INCREASINGLY AGITATED. REASSURED CIRO VILLAFANA THAT PATIENT IS BEING PROVIDED WATER, FOOD, AND WE ARE IN THE ROOM AT LEAST EVERY HOUR TO ADDRESS NEEDS. CIRO VILLAFANA BELIEVES PATIENTS AGITATION IS RELATED TO PAIN. ASSURED CIRO VILLAFANA THAT I WOULD ADDRESS WITH THE
--- NOTE | 2022-08-13 05:36 | NUR ---
PATIENT MORE ORIENTED THIS SHIFT. RESTED WELL. POSSIBLE D/C HOME TODAY
[2022-08-13 06:08] LABS: BASOPHILS ABSOLUTE AUTO 0.06 K/mm3 (0.00-0.23); BASOPHILS PERCENT AUTO 1 % (0-2); EOSINOPHILS ABSOLUTE AUTO 0.45 K/mm3 (0.00-0.68); EOSINOPHILS PERCENT AUTO 7 % (0-6); Hematocrit 35.4 % (33.0-51.0); Hemoglobin 11.8 g/dL (11.5-16.0); IMMATURE GRAN ABSOLUTE AUTO 0.03 K/mm3 (0.00-0.10); IMMATURE GRAN PERCENT AUTO 0 % (0-1); LYMPHOCYTES ABSOLUTE AUTO 2.14 K/mm3 (0.84-5.20); LYMPHOCYTES PERCENT AUTO 31 % (21-46); MONOCYTES ABSOLUTE AUTO 0.65 K/mm3 (0.16-1.47); MONOCYTES PERCENT AUTO 9 % (4-13); Mean Corpuscular HGB 28.9 pg (26.0-34.0); Mean Corpuscular HGB Conc 33.3 g/dL (31.5-36.5); Mean Corpuscular Volume 87 fL (80-100); Mean Platelet Volume 10.4 fL (9.1-12.4); NEUTROPHILS ABSOLUTE AUTO 3.58 K/mm3 (1.96-9.15); NEUTROPHILS PERCENT AUTO 52 % (41-73); Platelet Count 280 K/mm3 (150-400); RDW Coefficient Variation 13.2 % (11.7-14.2); RDW Standard Deviation 41.9 fL (35.1-46.3); Red Blood Cell Count 4.08 M/mm3 (3.80-5.20); White Blood Cell Count 6.91 K/mm3 (4.00-11.30)
[2022-08-13 07:29] LABS: Albumin, Blood 2.5 g/dL (3.4-5.0); Albumin/Globulin Ratio 0.6 (0.8-1.8); Bilirubin, Total 0.3 mg/dL (0.1-1.0); Calcium, Blood 9.6 mg/dL (8.5-10.1); Creatinine, Blood 0.9 mg/dL (0.40-1.00); Globulin, Blood 3.9 g/dL (2.2-4.0); Potassium, Blood 3.4 mmol/L (3.5-5.5); Total Protein, Blood 6.4 g/dL (6.4-8.2)
--- NOTE | 2022-08-13 09:37 | NUR ---
DR BABB ROUNDING ON PATIENT NOW, PATIENT TO BE DISCHARGED HOME TODAY
[2022-08-13] MEDS ORDERED: AMLO5 PO (11:25)
--- NOTE | 2022-08-13 13:21 | NUR ---
PATIENT AND SPOUSE STATED UNDERSTANDING OF DISCHARGE INSTRUCTIONS AND MEDICATIONS, LEFT VIA W/C, PERSONAL CAR HOME
== END 2022-08-13 12:14 | disposition home or self-care (01) | DRG 682 ==
LOC: ER 05:39 → ICUW 08:59 → MEDS 08:59 → ICUW 08-07 10:23 → MEDS 08-10 16:03
PROVIDERS: Emergency Medicine; Family Medicine; Internal Medicine; ADMIT Hospitalist
PROC: 0T9B70Z Drainage of Bladder with Drainage Device, Via Natural or Artificial Opening (ICD-10-PCS; principal; 2022-08-06)
DX: N17.9 Acute kidney failure, unspecified (principal); G92.8 Other toxic encephalopathy; N39.0 Urinary tract infection, site not specified; Q44.1 Other congenital malformations of gallbladder; F30.9 Manic episode, unspecified; R44.0 Auditory hallucinations; G89.29 Other chronic pain; N18.30 Chronic kidney disease, stage 3 unspecified; E11.22 Type 2 diabetes mellitus with diabetic chronic kidney disease; E78.5 Hyperlipidemia, unspecified; I12.9 Hypertensive chronic kidney disease with stage 1 through stage 4 chronic kidney disease, or unspecified chronic kidney disease; E03.9 Hypothyroidism, unspecified; R91.1 Solitary pulmonary nodule; E11.65 Type 2 diabetes mellitus with hyperglycemia; M54.31 Sciatica, right side; R33.9 Retention of urine, unspecified; K76.0 Fatty (change of) liver, not elsewhere classified; M79.7 Fibromyalgia; E86.0 Dehydration; M81.0 Age-related osteoporosis without current pathological fracture; Z98.890 Other specified postprocedural states; Z90.49 Acquired absence of other specified parts of digestive tract; Z90.710 Acquired absence of both cervix and uterus; Z87.891 Personal history of nicotine dependence; Z88.2 Allergy status to sulfonamides; Z88.8 Allergy status to other drugs, medicaments and biological substances; Z79.899 Other long term (current) drug therapy; Z79.891 Long term (current) use of opiate analgesic; Z79.84 Long term (current) use of oral hypoglycemic drugs; Z79.2 Long term (current) use of antibiotics; Z95.828 Presence of other vascular implants and grafts
CPT/HCPCS: 36415; 70450; 71260; 76705; 80048; 80053; 81001; 81003; 82947; 83735; 83880; 84100; 84439; 84443; 84481; 85025; 85651; 86140; 87086; 93005; 93010; 96361; 96365; 97116; 97161; 97166; 97530; 97535; 99285-25; A9270; J0360; J0696; J1630; J1650; J1815; J2060; J7030; J7042; J7050; P9612; Q9967

== ENCOUNTER 2023-10-09 03:50 | Day surgery (SDC) | payer BC, OTHER ==
[~2023-10-09 03:50] MED LIST changes: +GABA300 PO; +Triamcinolone A15 G4 TOP
[2023-10-09 14:00] VITALS: BP 138/81
[2023-10-09] MEDS ORDERED: Carvedilol12.5 MG PO (14:45)
[2023-10-09] MEDS ORDERED: FLUTICASONE-SA1 EAC1 INH (14:45)
[2023-10-09] MEDS ORDERED: LOSA25 PO (14:46)
[2023-10-09] MEDS ORDERED: Percocet 5-3251 EACH PO (14:46)
[2023-10-09] MEDS ORDERED: ESTROVEN CMPLT M4 MG PO (14:46)
[2023-10-09 15:30] VITALS: BP 152/94
== END 2023-10-09 15:33 | disposition home or self-care (01) ==
LOC: ATC 03:50
DX: L40.50 Arthropathic psoriasis, unspecified (principal); I10 Essential (primary) hypertension; E11.9 Type 2 diabetes mellitus without complications; Z88.1 Allergy status to other antibiotic agents; Z79.84 Long term (current) use of oral hypoglycemic drugs; Z79.899 Other long term (current) drug therapy
CPT/HCPCS: 96365; J1602